=== PATIENT | male | born 1955 | race Caucasian/White ===

== ENCOUNTER 2020-07-13 08:33 | Emergency (ER) | payer SELFPAY ==
[~2020-07-13] VITALS: Ht 167.6 cm; Wt 68.0 kg
[2020-07-13] MEDS ORDERED: METF-815 PO (08:45)
[2020-07-13] MEDS ORDERED: LISI-186 PO (08:46)
[2020-07-13] MEDS ORDERED: ATOR10TA69 PO (08:46)
[2020-07-13] MEDS ORDERED: KETOROLAC 30MG/ML VIAL IM ONE (09:00)
[2020-07-13 10:50] VITALS: BP 130/78
== END 2020-07-13 10:50 | disposition home or self-care (01) ==
LOC: ER 08:46
DX: S82.831A Other fracture of upper and lower end of right fibula, initial encounter for closed fracture (principal); W50.0XXA Accidental hit or strike by another person, initial encounter; Y93.89 Activity, other specified; Y92.89 Other specified places as the place of occurrence of the external cause; Y99.8 Other external cause status; E11.9 Type 2 diabetes mellitus without complications; E78.00 Pure hypercholesterolemia, unspecified; I10 Essential (primary) hypertension
CPT/HCPCS: 29515; 73610; 96372; 99283; J1885

== ENCOUNTER 2020-07-18 12:06 | Emergency (ER) | payer MEDICAID ==
[~2020-07-18] VITALS: Ht 167.6 cm; Wt 73.0 kg
[~2020-07-18 12:06] MED LIST: ATOR10TA69 PO; LISI-186 PO; METF-815 PO
[2020-07-18 12:27] VITALS: BP 152/72
== END 2020-07-18 13:08 | disposition home or self-care (01) ==
LOC: ER 12:17
DX: Z76.0 Encounter for issue of repeat prescription (principal); E11.9 Type 2 diabetes mellitus without complications; I10 Essential (primary) hypertension; E78.00 Pure hypercholesterolemia, unspecified; Z79.84 Long term (current) use of oral hypoglycemic drugs; Z87.81 Personal history of (healed) traumatic fracture
CPT/HCPCS: 99282

== ENCOUNTER 2023-07-14 07:34 | Emergency (ER) | payer OTHER, MEDICAID ==
[~2023-07-14] VITALS: Ht 170.2 cm; Wt 68.0 kg
[~2023-07-14 07:34] MED LIST changes: -METF-815 PO; +METF-873 PO
[2023-07-14 07:41] VITALS: O2SAT 98
[2023-07-14 08:03] LABS: BASOPHILS % 0.5 % (0.0-2.0); EOSINOPHILS % 0.5 % (0.0-5.0); HEMATOCRIT. 41.8 % (42.0-52.0); HEMOGLOBIN. 14.5 g/dL (14.0-18.0); LYMPHOCYTES % 18.2 % (20.0-50.0); MEAN CORPUSCULAR HEMOGLOBIN 31.7 pg (28.0-32.0); MEAN CORPUSCULAR HGB CONC 34.8 g/dL (31.0-37.0); MEAN CORPUSCULAR VOLUME 91.2 fL (80.0-94.0); MEAN PLATELET VOLUME 7.1 fl (7.4-10.4); MONOCYTES % 7.9 % (2.0-8.0); NEUTROPHILS % 72.9 % (40.0-76.0); PLATELET 267 x1000/uL (130-400); RED BLOOD CELL COUNT 4.58 mill/uL (4.7-6.1); RED CELL DISTRIBUTION WIDTH 12.5 % (11.6-14.6); WHITE BLOOD COUNT 10.6 x1000/uL (4.5-11.0)
[2023-07-14 08:14] LABS: ALANINE AMINOTRANSFERASE 67 IU/L (10-49); ASPARTATE AMINOTRANSFERASE 66 IU/L (<34); BILIRUBIN TOTAL 1.1 mg/dL (0.1-1.0); CARBON DIOXIDE 33 mEq/L (21-32); CHLORIDE 92 mEq/L (98-107); CREATININE 0.9 mg/dL (0.6-1.3); GLUCOSE 216 mg/dL (70-105); PROTEIN TOTAL 7.4 g/dL (6.0-8.3); SODIUM 130 mEq/L (136-145); UREA NITROGEN BLOOD 16 mg/dL (9-23)
[2023-07-14] MEDS ORDERED: MAGNESIUM/ALUMINUM HYDROXIDE/SIMETHICONE 30ML UDC PO STA (08:47)
[2023-07-14] MEDS ORDERED: ACETAMINOPHEN 325MG TABLET PO STA (08:47)
[2023-07-14] MEDS ORDERED: SUCRALFATE 1 G/10 ML UDC PO ONE (09:00)
[2023-07-14 09:07] LABS: TROPONIN I HIGH SENSITIVITY 43 ng/L (3.0-53)
[2023-07-14] MEDS ORDERED: SUCRALFATE 1G TABLET PO NR (09:15)
[2023-07-14] MEDS ORDERED: KETOROLAC 60MG/2ML VIAL IM ONE (10:15)
[2023-07-14] MEDS ORDERED: ACETAMINOPHEN 500MG TABLET PO NR (10:51)
[2023-07-14] MEDS ORDERED: KETOROLAC 60MG/2ML VIAL IM NR (10:52)
[2023-07-14] MEDS ORDERED: MAGNESIUM/ALUMINUM HYDROXIDE/SIMETHICONE 30ML UDC PO NR (10:53)
[2023-07-14 11:19] VITALS: BP 142/80; PULSE 113; RESP 18; TEMP 98.1
[2023-07-14 11:30] LABS: CLARITY URINE CLEAR (CLEAR); COLOR URINE DARK YELLOW (YELLOW); GLUCOSE URINE TRACE (NEGATIVE); KETONES URINE 1+ (NEGATIVE); LEUKOCYTE ESTERASE URINE NEGATIVE (NEGATIVE); NITRITE URINE NEGATIVE (NEGATIVE); OCCULT BLOOD URINE NEGATIVE (NEGATIVE); PH URINE 6.5 (4.5-8.0); PROTEIN URINE 1+ (NEGATIVE); SPECIFIC GRAVITY URINE 1.023 (1.005-1.030)
[2023-07-14 11:41] LABS: BACTERIA URINE FEW; RBC URINE NONE SEEN /hpf (0-2); SQUAMOUS EPITHELIAL CELL URINE FEW /lpf (RARE/1+); YEAST URINE NONE SEEN
[2023-07-14 13:25] LABS: TROPONIN I HIGH SENSITIVITY 41 ng/L (3.0-53)
== END 2023-07-14 13:21 | disposition home or self-care (01) ==
LOC: ER 07:34
DX: R10.13 Epigastric pain (principal); I10 Essential (primary) hypertension; E11.9 Type 2 diabetes mellitus without complications; E78.00 Pure hypercholesterolemia, unspecified
CPT/HCPCS: 99285; 71045; 80053; 81003; 83690; 85025; 84484; 93005; 96372; 36415; J1885